=== PATIENT | male | born 1995 | race Asian ===

== ENCOUNTER 2022-10-16 09:38 | Emergency (ER) | payer OTHER ==
[2022-10-16 09:53] VITALS: BP 139/87; PULSE 116; RESP 18; TEMP 100; BMI 26.4
[2022-10-16] MEDS ORDERED: KETOROLAC TROMETHAMINE 30 MG/1 ML VIAL IM ONE (10:21)
[2022-10-16] MEDS ORDERED: DEXAMETHASONE LIQUID 0.5 MG/5 ML PO ONE (10:21)
[2022-10-16] MEDS ORDERED: KETOROLAC TROMETHAMINE 30 MG/1 ML VIAL ONE (10:32)
[2022-10-16] MEDS ORDERED: DEXAMETHASONE SOD PHOSPHATE 10 MG/1 ML VIAL ONE (10:32)
== END 2022-10-16 11:42 | disposition home or self-care (01) ==
LOC: JERFT 09:38
PROC: 3E0233Z Introduction of Anti-inflammatory into Muscle, Percutaneous Approach (ICD-10-PCS; principal; 2022-10-16)
DX: J02.0 Streptococcal pharyngitis (principal)
CPT/HCPCS: 0241U-QW; 87070; 87651; 99284-25